=== PATIENT | female | born 1995 | race Caucasian/White ===

== ENCOUNTER 2019-11-25 16:27 | Emergency (ER) | payer OTHER ==
--- NOTE | 2019-11-25 16:50 | EDM.PDOC ---
ED HPI GENERAL MEDICAL PROBLEM - General Chief Complaint: Skin Complaint Stated Complaint: NIPPLE INFECTION Time Seen by Provider: 11/25/19 16:29 Source of Information: Reports: Patient History Limitations: Reports: No Limitations - History of Present Illness INITIAL COMMENTS - FREE TEXT/NARRATIVE: HISTORY AND PHYSICAL: History of present illness: Patient is a 24-year-old female who presents to the emergency room with complaints of infected nipple piercings. She states that these piercings are longstanding and have had them for over a year. She recently placed in [employer], had been accustomed to jeffy silver, when she noticed drainage coming from the sites bilaterally. She does now have some pain and discomfort with trying to rotate or clean the jewelry. Patient denies any fever, chills, headache, change in vision, syncope or near syncope. Denies any chest pain, back pain, shortness of breath or cough. Denies any GI or symptoms. Patient has been eating and drinking appropriately. Review of systems: As per history of present illness and below otherwise all systems reviewed and negative. Past medical history: As per history of present illness and as reviewed below otherwise noncontributory. Surgical history: As per history of present illness and as reviewed below otherwise noncontributory. Social history: See social history for further information Family history: As per history of present illness and as reviewed below otherwise noncontributory. Physical exam: General: Well developed and well nourished 24-year-old female. Alert and oriented. Nontoxic-appearing and in no acute distress. HEENT: Atraumatic, normocephalic, pupils equal and reactive bilaterally, negative for conjunctival pallor or scleral icterus, mucous membranes moist, TMs normal bilaterally, throat clear, neck supple, nontender, trachea midline. No drooling or trismus noted. No meningeal signs. No hot potato voice noted. Lungs: Clear to auscultation, breath sounds equal bilaterally, chest nontender. Breast: SEE SKIN for details. This was done with consent and a dietetic tech at the bedside. No masses, dimpling, nipple drainage noted. Heart: S1S2, regular rate and rhythm without overt murmur Abdomen: Soft, nondistended, nontender. Negative for masses or hepatosplenomegaly. Negative for costovertebral tenderness. Pelvis: Stable nontender. Skin: Patient does have some mild redness noted on the left breast near the nipple, she does have some purulent drainage noted at both piercing sites. Otherwise remaining skin is intact, warm, dry. No lesions or rashes noted. Extremities: Atraumatic, moves all extremities per self without difficulty or deficits, negative for cords or calf pain. Neurovascular unremarkable. Neuro: Awake, alert, oriented. Cranial nerves II through XII unremarkable. Cerebellum unremarkable. Motor and sensory unremarkable throughout. Exam nonfocal. Notes: The need for follow-up, medication and supportive care measures were reviewed and discussed. Voices understanding and is agreeable to plan of care. Denies any further questions or concerns at this time. Diagnostics: None Therapeutics: None Prescription: Clindamycin, Bactroban Impression: Piercing infection Plan: 1. Please replace the piercings with clean jeffy. Gently wash the areas twice daily. You can apply the topical antibiotic ointment 3 times daily for the next 5 to 7 days. This is also good to keep on hand in case you feel that this is recurrent. 2. You can alternate Tylenol and ibuprofen as needed for pain. 3. Follow-up with your primary care provider as we discussed. Return to the ED as needed and as discussed. Definitive disposition and diagnosis as appropriate pending reevaluation and review of above. bilateral nipples Pain Score (Numeric/FACES): 9 - Related Data Allergies Allergy/AdvReac Type Severity Reaction Status Date / Time amoxicillin Allergy Rash Verified 11/25/19 16:41 ondansetron [From Zofran] Allergy Difficulty Verified 11/25/19 16:41 Breathing Home Meds: Home Meds Mupirocin Oint [Bactroban Oint] 1 dose TOP TID 7 Days #1 tube 11/25/19 [Rx] clindamycin HCL [Clindamycin HCl] 300 mg PO TID #15 capsule 11/25/19 [Rx] Past Medical History Oncologic (Cancer) History: Reports: Hodgkin's Lymphoma Social & Family History - Family History Family Medical History: Noncontributory - Tobacco Use Smoking Status *Q: Never Smoker - Recreational Drug Use Recreational Drug Use: No ED ROS GENERAL - Review of Systems Review Of Systems: Comprehensive ROS is negative, except as noted in HPI. ED EXAM, SKIN/RASH Exam: See Below (See dictation) Course - Vital Signs Last Recorded V/S: Last Vital Signs Temp 97.5 F 11/25/19 16:38 Pulse 78 11/25/19 16:38 Resp 16 11/25/19 16:38 BP 123/60 11/25/19 16:38 Pulse Ox 100 11/25/19 16:38 Departure - Departure Time of Disposition: 16:49 Disposition: Home, Self-Care 01 Clinical Impression: Pierced nipple infection - Discharge Information Prescriptions: Mupirocin Oint [Bactroban Oint] 1 dose TOP TID 7 Days #1 tube clindamycin HCL [Clindamycin HCl] 300 mg PO TID #15 capsule Instructions: Wound Infection, [id number] Forms: ED Department Discharge Additional Instructions: The following information is given to patients seen in the emergency department who are being discharged to home. This information is to outline your options for follow-up care. We provide all patients seen in our emergency department with a follow-up referral. The need for follow-up, as well as the timing and circumstances, are variable depending upon the specifics of your emergency department visit. If you don't have a primary care physician on staff, we will provide you with a referral. We always advise you to contact your personal physician following an emergency department visit to inform them of the circumstance of the visit and for follow-up with them and/or the need for any referrals to a consulting specialist. The emergency department will also refer you to a specialist when appropriate. This referral assures that you have the opportunity for follow-up care with a specialist. All of these measure are taken in an effort to provide you with optimal care, which includes your follow-up. Under all circumstances we always encourage you to contact your private physician who remains a resource for coordinating your care. When calling for follow-up care, please make the office aware that this follow-up is from your recent emergency room visit. If for any reason you are refused follow-up, please contact the [facility] Emergency Department at and asked to speak to the emergency department charge nurse. [facility] [address] [place] [id number] [address] [place] [address] 1. Please replace the piercings with clean jeffy. Gently wash the areas twice daily. You can apply the topical antibiotic ointment 3 times daily for the next 5 to 7 days. This is also good to keep on hand in case you feel that this is recurrent. 2. You can alternate Tylenol and ibuprofen as needed for pain. 3. Follow-up with your primary care provider as we discussed. Return to the ED as needed and as discussed. Sepsis Event Note (ED) - Evaluation Sepsis Screening Result: No Definite Risk - Focused Exam Vital Signs: Vital Signs Temp Pulse Resp BP Pulse Ox 11/25/19 16:38 97.5 F 78 16 123/60 100
== END 2019-11-25 17:05 | disposition home or self-care (01) ==
LOC: MW.ED 16:27
DX: L08.9 Local infection of the skin and subcutaneous tissue, unspecified (principal); Z88.1 Allergy status to other antibiotic agents; Z88.8 Allergy status to other drugs, medicaments and biological substances
CPT/HCPCS: 99282